=== PATIENT | male | born 1955 | race Caucasian/White ===

== ENCOUNTER 2016-11-01 07:59 | Emergency (ER) | payer OTHER ==
[2016-11-01 08:47] VITALS: BP 120/78
--- NOTE | 2016-11-01 08:52 | ED ---
Vangie Johnson Thomas, scribed for Trevor Villalba MD on 11/01/16 at 0804 . Back Pain - HPI Summary HPI Summary: The pt is a 61 y/o M presenting to the ED c/o low back pain s/p trip and fall two days ago. There is more pain on the R side. He rates the pain 6/10. He notes that his pain has improved somewhat since his fall, but he is not yet back to baseline. He has been prescribed Lidoderm patch, which has alleviated pain moderately. His low back pain worsens with movement, especially standing. He denies sensation deficit, weakness, bladder incontinence, and bowel incontinence. He states that when he has injured his back in the past, he has used Motrin and yoga poses to alleviate pain. - History of Current Complaint Stated Complaint: FALL BACK PAIN Hx Obtained From: Patient Onset/Duration: Sudden Onset - s/p fall two days ago, Still Present Onset/Duration: Still Present Timing: Constant, Lasting Days - 2 days Severity Currently: Moderate Pain Intensity: 6 Pain Scale Used: 0-10 Numeric Aggravating Symptom(s): Movement - especially sitting up Alleviating Symptom(s): OTC Meds - lidoderm Associated Signs And Symptoms: Positive: Other. Negative: Weakness - NEG: sensation deficiet, Bladder Incontinence, Bowel Incontinence - Allergies/Home Medications Allergies/Adverse Reactions: Allergies Allergy/AdvReac Type Severity Reaction Status Date / Time Citric Acid Allergy Intermediate Hives Verified 01/02/16 08:22 [From Citric Acid-Anhydrous] Pollen Extract Allergy Sneezing Verified 01/02/16 08:22 PMH/Surg Hx/FS Hx/Imm Hx Previously Healthy: No Endocrine/Hematology History: Denies: Hx Diabetes, Hx Systemic Lupus Erythematosus, Hx Thyroid Disease Cardiovascular History: Denies: Hx Congestive Heart Failure, Hx Hypertension, Hx Pacemaker/ICD Respiratory History: Reports: Hx Asthma Denies: Hx Chronic Obstructive Pulmonary Disease (COPD) GI History: Denies: Hx Ulcer History: Denies: Hx Dialysis, Hx Renal Disease Musculoskeletal History: Reports: Other Musculoskeletal History - severe low back pain radiating down both legs, no trauma Denies: Hx Rheumatoid Arthritis Sensory History: Denies: Hx Hearing Aid Neurological History: Denies: Hx Dementia, Hx Seizures Psychiatric History: Denies: Hx Depression, Hx Panic Disorder, Hx Substance Abuse - Cancer History Cancer Type, 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 Hx Chemotherapy: No - Surgical History Surgery Procedure, Year, and Place: 1999 LEG TUMOR REMOVAL (CANCEROUS) DID RADIATION AT THAT TIME, LT ELBOW X3, INTESTINAL REMOVAL NOT dueTO CANCER, BLADDER GROWTH NON CANCEROUS, COLON TUMOR NON CANCEROUS, HERNIA Infectious Disease History: Denies: Hx Hepatitis, Hx Human Immunodeficiency Virus (HIV), Traveled Outside the [place] in Last 30 Days - Family History Known Family History: Positive: Hypertension, Other - POS: HLD, colon CA - Social History Alcohol Use: Occasionally Hx Substance Use: No Substance Use Type: Reports: None Smoking Status (MU): Never Smoked Tobacco Review of Systems Constitutional: Negative Eyes: Negative ENT: Negative Cardiovascular: Negative Respiratory: Negative Gastrointestinal: Negative Positive: Other - NEG: incontinence Genitourinary: Negative Negative: incontinence Musculoskeletal: Other - POS: lower back pain, worsened with movement Skin: Negative Neurological: Negative, Other - NEG: sensation deficit, weakness to lower back Psychological: Normal All Other Systems Reviewed And Are Negative: Yes Physical Exam - Summary Physical Exam Summary: Gen: well-appearing, no pain distress Skin: warm, color, dry Head: normal Eyes: EOMI, THAO ENT: normal Neck: supple, nontender Resp: CTA, breath sounds present Cardio: RRR Abd: soft, nontender Bowel: present Musc: full strength to lower extremities, TTP lower lumbar, L and R SI joints. Increased pain with R plantar flexion and dorsiflexion Neuro: normal, full motor strength, no sensation deficits, A&O x3 Psych: affect/mood appropriate Triage Information Reviewed: Yes Vital Signs On Initial Exam: Initial Vitals Temp Pulse Resp BP Pulse Ox 97 F 65 18 144/94 98 11/01/16 08:00 11/01/16 08:00 11/01/16 08:00 11/01/16 08:00 11/01/16 08:00 Vital Signs Reviewed: Yes Diagnostics - Vital Signs Vital Signs Temp Pulse Resp BP Pulse Ox 11/01/16 08:45 98.2 F 71 16 120/78 11/01/16 08:09 98.1 F 70 16 124/80 99 11/01/16 08:00 97 F 65 18 144/94 98 - Laboratory Lab Statement: Any lab studies that have been ordered have been reviewed, and results considered in the medical decision making process. Back Pain Course/Dx - Course Course Of Treatment: NO CRITICAL CARE TIME. DISCHARGE HOME STABLE. - Diagnoses Provider Diagnoses: Low back pain Discharge - Discharge Plan Condition: Stable Disposition: HOME Prescriptions: Cyclobenzaprine TAB* [Flexeril 10 MG TAB*] 10 mg PO TID PRN #10 tab MDD 3 PRN Reason: Pain Ibuprofen TAB* [Motrin TAB* 800 MG] 800 mg PO Q6H #25 tab Lidocaine PATCH 5%* [Lidoderm 5% Patch*] 1 patch TRANSDERM DAILY PRN #10 patch PRN Reason: Pain Patient Education Materials: Acute Low Back Pain (ED), Lower Back Exercises (ED ) Referrals: Non Staff,Doctor [Primary Care Provider] - Additional Instructions: FOLLOW UP WITH YOUR DOCTOR. CONTINUE THE IBUPROFEN DIRECTED. RETURN TO THE EMERGENCY DEPARTMENT FOR ANY WORSENING OF YOUR CONDITION; WEAKNESS , NUMBNESS, DIFFICULTY CONTROLLING BOWEL OR BLADDER OR QUESTIONS OR CONCERNS. The documentation as recorded by the Vangie hernandez Thomas accurately reflects the service I personally performed and the decisions made by , Trevor Villalba MD.
== END 2016-11-01 08:45 | disposition home or self-care (01) ==
LOC: ED 07:59
DX: M54.5 Low back pain (principal)

== ENCOUNTER 2017-09-07 07:56 | Day surgery (SDC) | payer OTHER ==
[~2017-09-07 07:56] MED LIST: Acetaminophen TAB* 325 MG PO PRN; Buffered Lidocaine 0.9% SYRIN* 5 ML/SYR SYRINGE INTRADERM ONE
[2017-09-07] MEDS ORDERED: fentaNYL* 50 MCG/ML 2 ML VIAL (100 MCG VIAL) ONE (09:46)
[2017-09-07] MEDS ORDERED: Midazolam* 1 MG/ML 2 ML VIAL (2 MG) ONE ×2 (09:46→10:11)
[2017-09-07 10:54] VITALS: BP 123/64
[2017-09-07] MEDS ORDERED: Cyclopentolate 1% OPTH.SOL* 2 ML BTL ONE (12:23)
[2017-09-07] MEDS ORDERED: Proparacaine 0.5% OPHTH.SOL* 15 ML BTL ONE (12:23)
[2017-09-07] MEDS ORDERED: Neomycin/Polymy/Dex OPTH.SUSP* MAXITROL 0.1% 5 ML ONE (12:23)
[2017-09-07] MEDS ORDERED: Phenylephrine 2.5% OPTH.SOL* 2 ML BTL ONE (12:23)
[2017-09-07] MEDS ORDERED: acetaZOLAMIDE TAB* 250 MG ONE (12:23)
[2017-09-07] MEDS ORDERED: Povidone Iodine 5% OPTH* 30 ML BTL ONE (12:23)
[2017-09-07] MEDS ORDERED: Lidocaine 1% MPF* 2 ML VIAL ONE (12:23)
[2017-09-07] MEDS ORDERED: Ketorolac 0.5% OPHTH (NF) 0.5 % 5 ML BTL ONE (12:23)
[2017-09-07] MEDS ORDERED: Lidocaine 2% EPI 1:200000 MPF*10-20 ML VIAL ONE (12:23)
--- NOTE | 2017-09-08 06:50 | OP ---
DATE OF OPERATION: 09/07/17 - [facility] DATE OF : 53 SURGEON: Fredi Dee M.D. PREOPERATIVE DIAGNOSIS: Cataract, right eye. POSTOPERATIVE DIAGNOSIS: Cataract, right eye. OPERATIVE PROCEDURE: Extracapsular cataract extraction with intraocular lens implant right eye. DESCRIPTION OF PROCEDURE: The patient was brought to the operating room after being given 1/2% Alcaine with epinephrine drops in the preoperative area. The eye was prepped and draped in the usual sterile fashion. Sterile drape and eyelid speculum were placed. Again, topical 1/2% Alcaine with epinephrine was given. A paracentesis incision was made at the 9 o'clock position with the No.75 blade. Clear cornea incision 2.2 x 2.2-mm was created at the 12 o'clock position starting at the anterior limbus using the 2.2-mm keratome. The anterior chamber was irrigated with 0.4 mL of 1% non-preservative intracameral lidocaine and filled with DisCoVisc. A capsulorrhexis was completed using the cystotome and the Utrata forceps. Hydrodissection was performed with balanced salt solution. The lens nucleus was removed with the Phacoemulsification handpiece without incident. Cortex was removed with the irrigation-aspiration handpiece. The capsular bag was re-inflated using DisCoVisc and an [id number] 22 implant was inserted with the shooter. Pupil is only 3 mm, so a Malyugin ring was used to dilate the pupil prior to capsulorrhexis, removed after insertion of the lens. Indication for complex cataract surgery: Pupillary abnormalities requiring pupil dilation device. The irrigation-aspiration handpiece was used to remove all residual DisCoVisc. The eye was refilled with balanced salt solution and the wound checked and found to be watertight. Topical Maxitrol drops were given. [id number]/[facility] #: [id number] MTDD
== END 2017-09-07 10:11 | disposition home or self-care (01) ==
LOC: OREAST 07:56
PROVIDERS: ATTEND Specialist
DX: H25.813 Combined forms of age-related cataract, bilateral (principal); H10.45 Other chronic allergic conjunctivitis; J45.909 Unspecified asthma, uncomplicated; Z87.891 Personal history of nicotine dependence
CPT/HCPCS: A9270-GY; J2250; J3010; V2632

== ENCOUNTER 2017-09-14 07:26 | Day surgery (SDC) | payer OTHER ==
[2017-09-14] MEDS ORDERED: Midazolam* 1 MG/ML 2 ML VIAL (2 MG) ONE (09:14)
[2017-09-14] MEDS ORDERED: fentaNYL* 50 MCG/ML 2 ML VIAL (100 MCG VIAL) ONE (09:19)
[2017-09-14 10:04] VITALS: BP 137/87
[2017-09-14] MEDS ORDERED: Neomycin/Polymy/Dex OPTH.SUSP* MAXITROL 0.1% 5 ML ONE (13:21)
[2017-09-14] MEDS ORDERED: Phenylephrine 2.5% OPTH.SOL* 2 ML BTL ONE (13:21)
[2017-09-14] MEDS ORDERED: Ketorolac 0.5% OPHTH (NF) 0.5 % 5 ML BTL ONE (13:21)
[2017-09-14] MEDS ORDERED: Cyclopentolate 1% OPTH.SOL* 2 ML BTL ONE (13:21)
[2017-09-14] MEDS ORDERED: Proparacaine 0.5% OPHTH.SOL* 15 ML BTL ONE (13:21)
[2017-09-14] MEDS ORDERED: Lidocaine 1% MPF* 2 ML VIAL ONE (13:21)
[2017-09-14] MEDS ORDERED: acetaZOLAMIDE TAB* 250 MG ONE (13:21)
[2017-09-14] MEDS ORDERED: Povidone Iodine 5% OPTH* 30 ML BTL ONE (13:21)
[2017-09-14] MEDS ORDERED: Lidocaine 2% EPI 1:200000 MPF*10-20 ML VIAL ONE (13:21)
--- NOTE | 2017-09-15 05:13 | OP ---
DATE OF OPERATION: 09/14/17 [facility] DATE OF : 53 SURGEON: Fredi Dee M.D. PREOPERATIVE DIAGNOSIS: Cataract, left eye. POSTOPERATIVE DIAGNOSIS: Cataract, left eye. OPERATIVE PROCEDURE: Extracapsular cataract extraction with intraocular lens implant left eye. DESCRIPTION OF PROCEDURE: The patient was brought to the operating room after being given 1/2% Alcaine with epinephrine drops in the preoperative area. The eye was prepped and draped in the usual sterile fashion. Sterile drape and eyelid speculum were placed. Again, topical 1/2% Alcaine with epinephrine was given. A paracentesis incision was made at the 3 o'clock position with the No.75 blade. Clear cornea incision 2.2 x 2.2-mm was created at the 6 o'clock position starting at the anterior limbus using the 2.2-mm keratome. The anterior chamber was irrigated with 0.4 mL of 1% non-preservative intracameral lidocaine and filled with DisCoVisc. A capsulorrhexis was completed using the cystotome and the Utrata forceps. Hydrodissection was performed with balanced salt solution. The lens nucleus was removed with the Phacoemulsification handpiece without incident. Cortex was removed with the irrigation-aspiration handpiece. The capsular bag was re-inflated using DisCoVisc and an SN60WF 22.5 implant was inserted with the shooter and Malyugin ring was used to dilate the pupil prior to capsulorrhexis and removed after insertion of the lens. The pupil was only about 3 mm. Indication for complex cataract surgery, pupillary abnormalities requiring pupil dilation. The irrigation-aspiration handpiece was used to remove all residual DisCoVisc. The eye was refilled with balanced salt solution and the wound checked and found to be watertight. Topical Maxitrol drops were given. [id number]/[facility] #: [id number] [facility] CENTERLexy
== END 2017-09-14 09:58 | disposition home or self-care (01) ==
LOC: OREAST 07:26
PROVIDERS: ATTEND Specialist
DX: H25.812 Combined forms of age-related cataract, left eye (principal); H10.45 Other chronic allergic conjunctivitis; G47.33 Obstructive sleep apnea (adult) (pediatric); J45.909 Unspecified asthma, uncomplicated; F41.9 Anxiety disorder, unspecified; Z87.891 Personal history of nicotine dependence; Z85.831 Personal history of malignant neoplasm of soft tissue; G43.909 Migraine, unspecified, not intractable, without status migrainosus
CPT/HCPCS: A9270-GY; J2250; J3010; V2632

== ENCOUNTER 2017-10-05 17:44 | Emergency (ER) | payer OTHER ==
[2017-10-05] MEDS ORDERED: predniSONE TAB* 20 MG PO ONE (18:28)
--- NOTE | 2017-10-05 18:35 | ED ---
Skin Complaint - HPI Summary HPI Summary: Complains of poison chanel rash on bilateral legs, bilateral arms, back and chest 3 days. History of same. Denies perioral swelling, facial swelling, SOB, N/V, fever. - History of Current Complaint Chief Complaint: EDRashSkinAbscess Time Seen by Provider: 10/05/17 18:12 Stated Complaint: SKIN ISSUE Hx Obtained From: Patient Timing: Constant Onset Severity: Mild Current Severity: Moderate Pain Intensity: 4 Pain Scale Used: 0-10 Numeric Skin Location: Diffuse - Allergy/Home Medications Allergies/Adverse Reactions: Allergies Allergy/AdvReac Type Severity Reaction Status Date / Time MS Citric Acid Allergy Intermediate Hives Verified 09/07/17 08:24 [From Citric Acid-Anhydrous] citric acid Allergy Hives Verified 10/05/17 17:51 MS Pollen Extract Allergy Sneezing Verified 09/07/17 08:24 [Pollen Extract] pollen extracts Allergy Sneezing Verified 10/05/17 17:51 PMH/Surg Hx/FS Hx/Imm Hx Endocrine/Hematology History: Denies: Hx Diabetes, Hx Systemic Lupus Erythematosus, Hx Thyroid Disease Cardiovascular History: Denies: Hx Congestive Heart Failure, Hx Hypertension, Hx Pacemaker/ICD Respiratory History: Reports: Hx Asthma - uses inhaler, Hx Sleep Apnea Denies: Hx Chronic Obstructive Pulmonary Disease (COPD) GI History: Denies: Hx Ulcer History: Denies: Hx Dialysis, Hx Renal Disease Musculoskeletal History: Reports: Hx Arthritis - knees, Other Musculoskeletal History - severe low back pain radiating down both legs, no trauma Denies: Hx Rheumatoid Arthritis Sensory History: Reports: Hx Cataracts - both, Hx Contacts or Glasses - glasses Denies: Hx Hearing Aid Opthamlomology History: Reports: Hx Cataracts - both, Hx Contacts or Glasses - glasses Neurological History: Reports: Hx Migraine - once in a while more in spring Denies: Hx Dementia, Hx Seizures Psychiatric History: Reports: Hx Anxiety - work related Denies: Hx Depression, Hx Panic Disorder, Hx Substance Abuse - Cancer History Cancer Type, 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 Hx Chemotherapy: Yes - and radiation - Surgical History Surgery Procedure, Year, and Place: 1999 LEG TUMOR REMOVAL (CANCEROUS) DID RADIATION AT THAT TIME, LT ELBOW X3, INTESTINAL REMOVAL NOT dueTO CANCER, BLADDER GROWTH NON CANCEROUS, COLON TUMOR NON CANCEROUS, HERNIA Hx Anesthesia Reactions: No Infectious Disease History: No Infectious Disease History: Denies: Hx Hepatitis, Hx Human Immunodeficiency Virus (HIV), Traveled Outside the [place] in Last 30 Days - Family History Known Family History: Positive: Hypertension, Other - POS: HLD, colon CA - Social History Alcohol Use: Occasionally Hx Substance Use: No Substance Use Type: Reports: None Smoking Status (MU): Never Smoked Tobacco Review of Systems Constitutional: Negative Eyes: Negative ENT: Negative Cardiovascular: Negative Respiratory: Negative Gastrointestinal: Negative Genitourinary: Negative Musculoskeletal: Negative Positive: Rash Neurological: Negative Psychological: Normal All Other Systems Reviewed And Are Negative: Yes Physical Exam - Summary Physical Exam Summary: Rash to bilateral lower extremities, bilateral upper extremities, with milder symptoms on chest and back. No perioral or oropharyngeal swelling. No work of breathing. Triage Information Reviewed: Yes Vital Signs On Initial Exam: Initial Vitals Temp Pulse Resp BP Pulse Ox 98.5 F 84 17 133/85 98 10/05/17 17:45 10/05/17 17:45 10/05/17 17:45 10/05/17 17:45 10/05/17 17:45 Vital Signs Reviewed: Yes Appearance: Positive: Well-Appearing Skin: Positive: Warm Head/Face: Positive: Normal Head/Face Inspection Eyes: Positive: Normal ENT: Positive: Normal ENT inspection Neck: Positive: Supple Respiratory/Lung Sounds: Positive: Clear to Auscultation Cardiovascular: Positive: Normal Abdomen Description: Positive: Nontender Musculoskeletal: Positive: Normal Neurological: Positive: Normal Psychiatric: Positive: Normal AVPU Assessment: Alert - Nia Coma Scale Best Eye Response: 4 - Spontaneous Best Motor Response: 6 - Obeys Commands Best Verbal Response: 5 - Oriented Coma Scale Total: 15 Diagnostics - Vital Signs Vital Signs Temp Pulse Resp BP Pulse Ox 10/05/17 17:45 98.5 F 84 17 133/85 98 - Laboratory Lab Statement: Any lab studies that have been ordered have been reviewed, and results considered in the medical decision making process. Course/Dx - Course Course Of Treatment: Complains of poison chanel rash on bilateral legs, bilateral arms, back and chest 3 days. History of same. Denies perioral swelling, facial swelling, SOB, N/V, fever.Rash to bilateral lower extremities, bilateral upper extremities, with milder symptoms on chest and back. No perioral or oropharyngeal swelling. No work of breathing. Patient started on prednisone 60 mg here in ED. Rx for prednisone taper 24 days - Diagnoses Provider Diagnoses: Poison chanel Discharge - Sign-Out/Discharge Documenting (check all that apply): Discharge/Admit/Transfer - Discharge Plan Condition: Stable Disposition: HOME Prescriptions: predniSONE TAB* [Deltasone 10 MG TAB*] 10 mg PO DAILY 24 Days #84 tab Patient Education Materials: Poison Chanel (ED), Cold Compress or Soak (ED) Referrals: Non Staff,Doctor [Medical Doctor] - [facility] [Outside] Additional Instructions: Take prednisone as directed. You may use [id number] hydrocortisone topical cream for itching but do not place on face or genitals. Follow-up with primary care. Return to the ED for any new or worsening symptoms - Billing Disposition and Condition Condition: STABLE Disposition: Home
[2017-10-05 18:46] VITALS: BP 000/00
== END 2017-10-05 18:45 | disposition home or self-care (01) ==
LOC: ED 17:44
DX: L23.7 Allergic contact dermatitis due to plants, except food (principal); J45.909 Unspecified asthma, uncomplicated; G47.30 Sleep apnea, unspecified; G43.909 Migraine, unspecified, not intractable, without status migrainosus; F41.9 Anxiety disorder, unspecified; Z85.831 Personal history of malignant neoplasm of soft tissue; Z82.49 Family history of ischemic heart disease and other diseases of the circulatory system; Z80.0 Family history of malignant neoplasm of digestive organs
CPT/HCPCS: 99281; J7512

== ENCOUNTER 2018-02-27 20:10 | Emergency (ER) | payer OTHER ==
[2018-02-27 20:22] VITALS: BP 134/93
[2018-02-27] MEDS ORDERED: DOXYcycline CAP(*) 100 MG PO ONE (21:06)
--- NOTE | 2018-02-27 21:07 | ED ---
Bite Injury/Animal - HPI Summary HPI Summary: 66-year-old male presents with tick on his back. Not sure how long the tick was there. No medical conditions. No allergies medication. No fevers. No chills. No other symptoms. - History of Current Complaint Chief Complaint: EDGeneral Stated Complaint: TICK LT SIDE FLANK AREA Time Seen by Provider: 02/27/18 20:57 Pain Intensity: 4 - Allergies/Home Medications Allergies/Adverse Reactions: Allergies Allergy/AdvReac Type Severity Reaction Status Date / Time citric acid Allergy Hives Verified 02/27/18 20:23 pollen extracts Allergy Sneezing Verified 02/27/18 20:23 PMH/Surg Hx/FS Hx/Imm Hx Endocrine/Hematology History: Denies: Hx Diabetes, Hx Systemic Lupus Erythematosus, Hx Thyroid Disease Cardiovascular History: Denies: Hx Congestive Heart Failure, Hx Hypertension, Hx Pacemaker/ICD Respiratory History: Reports: Hx Asthma - uses inhaler, Hx Sleep Apnea Denies: Hx Chronic Obstructive Pulmonary Disease (COPD) GI History: Denies: Hx Ulcer History: Denies: Hx Dialysis, Hx Renal Disease Musculoskeletal History: Reports: Hx Arthritis - knees, Other Musculoskeletal History - severe low back pain radiating down both legs, no trauma Denies: Hx Rheumatoid Arthritis Sensory History: Reports: Hx Cataracts - both, Hx Contacts or Glasses - glasses Denies: Hx Hearing Aid Opthamlomology History: Reports: Hx Cataracts - both, Hx Contacts or Glasses - glasses Neurological History: Reports: Hx Migraine - once in a while more in spring Denies: Hx Dementia, Hx Seizures Psychiatric History: Reports: Hx Anxiety - work related Denies: Hx Depression, Hx Panic Disorder, Hx Substance Abuse - Cancer History Cancer Type, 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 Hx Chemotherapy: Yes - and radiation - Surgical History Surgery Procedure, Year, and Place: 1999 LEG TUMOR REMOVAL (CANCEROUS) DID RADIATION AT THAT TIME, LT ELBOW X3, INTESTINAL REMOVAL NOT dueTO CANCER, BLADDER GROWTH NON CANCEROUS, COLON TUMOR NON CANCEROUS, HERNIA Hx Anesthesia Reactions: No Infectious Disease History: No Infectious Disease History: Denies: Hx Hepatitis, Hx Human Immunodeficiency Virus (HIV), Traveled Outside the [place] in Last 30 Days - Family History Known Family History: Positive: Hypertension, Other - POS: HLD, colon CA - Social History Alcohol Use: None Hx Substance Use: No Substance Use Type: Reports: None Smoking Status (MU): Never Smoked Tobacco Review of Systems Negative: Fever Negative: Chest Pain Negative: Shortness Of Breath Positive: Other - tick bite All Other Systems Reviewed And Are Negative: Yes Physical Exam Triage Information Reviewed: Yes Vital Signs On Initial Exam: Initial Vitals Temp Pulse Resp BP Pulse Ox 97.5 F 99 14 134/93 96 02/27/18 20:21 02/27/18 20:21 02/27/18 20:21 02/27/18 20:21 02/27/18 20:21 Vital Signs Reviewed: Yes Appearance: Positive: Well-Appearing Skin: Positive: Warm, Dry, Other - tick with minimial erythema on side of left lower back Head/Face: Positive: Normal Head/Face Inspection Eyes: Positive: Normal, Conjunctiva Clear ENT: Positive: Pharynx normal Respiratory/Lung Sounds: Positive: Clear to Auscultation, Breath Sounds Present Cardiovascular: Positive: Normal, RRR Musculoskeletal: Positive: Normal Neurological: Positive: Normal Psychiatric: Positive: Normal Diagnostics - Vital Signs Vital Signs Temp Pulse Resp BP Pulse Ox 02/27/18 20:21 97.5 F 99 14 134/93 96 - Laboratory Lab Statement: Any lab studies that have been ordered have been reviewed, and results considered in the medical decision making process. Bite Injury Course/Dx - Course Course Of Treatment: 66-year-old male presents with tick on his back. Not sure how long the tick was there. No medical conditions. No allergies medication. No fevers. No chills. No other symptoms. On exam tick present in left side of back. removed tick. We give prophylaxis a doxcyc. Patient understands agrees with plan. - Diagnoses Differential Diagnosis/HQI/PQRI: Positive: Other - tick, lyme Provider Diagnosis: Tick bite of back Discharge - Sign-Out/Discharge Documenting (check all that apply): Patient Departure - Discharge Plan Condition: Good Disposition: HOME Patient Education Materials: Tick Bite (ED) Referrals: Alma Cm MD [Primary Care Provider] - Additional Instructions: You have been prophylactically treated for Lyme disease Return to ED if develop any rash or signs of infection - Billing Disposition and Condition Condition: GOOD Disposition: Home
== END 2018-02-27 21:22 | disposition home or self-care (01) ==
LOC: ED 20:10
DX: S30.860A Insect bite (nonvenomous) of lower back and pelvis, initial encounter (principal); W57.XXXA Bitten or stung by nonvenomous insect and other nonvenomous arthropods, initial encounter; Y92.9 Unspecified place or not applicable
CPT/HCPCS: 99281; A9270-GY

== ENCOUNTER 2019-03-01 09:48 | Emergency (ER) | payer OTHER ==
--- OUTSIDE RECORDS SUMMARY | 2019-03-01 10:09 | XMS REPORT | Continuity of Care Document ---
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 Problems Active Problems Provider Date Acquired hallux rigidus Skyler Saavedra MD Onset: 07/07/2018 Social History Type Date Description Comments Sex Unknown ETOH Use Currently consumes alcohol Tobacco Use Start: Unknown Patient has never smoked Smoking Status Reviewed: 01/16/19 Patient has never smoked Exercise Type/Frequency Exercises sporadically Allergies, Adverse Reactions, Alerts Active Allergies Reaction Severity Comments Date Citric Acid 11/24/2018 Inactive Allergies NKDA 11/25/2016 Medications Active Medications SIG Qnty Indications Ordering Date Provider Magnesium Citrate Drink The Entire 296units Boston Bo 01/10/2019 Bottle After MD Barron 1.745GM/30ML Dinner, Two Days Solution Before Your Procedure Suprep Bowel Prep take according to 354ml Boston Bo 12/25/2018 Kit the instructions MD Barron you received, the 17.5-3.13-1.6GM/177 afternoon before ML Solution and morning of your procedure. [facility] Magnesium drink the entire 296ml Boston Bo 12/25/2018 Citrate bottle after MD Barron dinner, two days 1.745GM/30ML before your Solution procedure Naproxen 1 by mouth twice a 60tabs M25.561 Leeroy F 12/25/2018 500mg day as needed pain MD Fidelina Tablets Advair Diskus 1 puff inhaled 60units Anirudh Chappell MD 11/24/2018 twice a day 250-50mcg/Dose Aerosol Proventil HFA inhale two puffs 6.700gm Jo-Ann Gonzalez, 11/24/2018 every 4 hours as DO 108(90Base) mcg/Act needed for wheezing Aerosol Carbon Fiber Right foot 1units M17.0 Leeroy Loza 08/21/2018 Baseplate To Yemi Kitchen MD 1St MP Joint Motrin Ib as needed Unknown 600mg Tablets Niaspan 1 by mouth every Unknown 500mg day Tablets ER Tamsulosin HCL 2 by mouth every Unknown day 0.4mg Capsules Melatonin ER take one Unknown 3mg tablet/capsule by Tablets ER mouth at bedtime. for insomnia Montelukast Sodium 1 by mouth every Unknown day 10mg Tablets Albuterol Sulfate Unknown HFA 108(90Base) mcg/Act Aerosol Medications Administered in Office Medication SIG Qnty Indications Ordering Provider Date Depomedrol 40MG Leeroy Kitchen MD 12/25/2018 Injection Depomedrol 40MG Leeroy Kitchen MD 12/25/2018 Injection Depomedrol 40MG Leeroy Kitchen MD 12/25/2018 Injection Depomedrol 40MG Leeroy Kitchen MD 08/21/2018 Injection Depomedrol 40MG Leeroy Kitchen MD 08/21/2018 Injection Triamcinolone (Kenalog) Skyler Saavedar MD 07/07/2018 Injection Depomedrol 40MG Leeroy Kitchen MD 04/18/2018 Injection Depomedrol 40MG Leeroy Kitchen MD 04/18/2018 Injection Depomedrol 40MG Leeroy Kitchen MD 12/29/2017 Injection Depomedrol 40MG Leeroy Kitchen MD 12/12/2017 Injection Depomedrol 40MG Leeroy Kitchen MD 12/12/2017 Injection Depomedrol 40MG Leeroy Kitchen MD 08/09/2017 Injection Depomedrol 40MG Leeroy Kitchen MD 04/05/2017 Injection Kalebrol 40MG Leeroy Kitchen MD 04/05/2017 Injection Depomedrol 40MG Leeroy Kitchen MD 11/25/2016 Injection Immunizations Description No Information Available Vital Signs Date Vital Result Comment 01/16/2019 9:22am Height 64 inches 5'4" Weight 189.00 lb Heart Rate 65 /min BP Systolic Sitting 122 mmHg BP Diastolic Sitting 84 mmHg O2 % BldC Oximetry 96 % BMI (Body Mass Index) 32.4 kg/m2 Neck Circumference in inches 17.75 12/25/2018 4:21pm Height 64 inches 5'4" Weight 184.00 lb stated Heart Rate 82 /min BP Systolic 126 mmHg BP Diastolic 74 mmHg Respiratory Rate 12 /min Pain Level 6 BMI (Body Mass Index) 31.6 kg/m2 Results Test Date Facility Test Result H/L Range Note Laboratory test 01/03/2019 [facility] PSA Diagnostic 5.391 ng/ mL High 0-4.0 1 [address] [place] [address] [phone] Lipid Profile 12/05/2018 [facility] Triglycerides 267 mg/dL 2 (Trig/Chol/HDL) [place] [address] [phone] Cholesterol 172 mg/dL 3 HDL Cholesterol 31.0 mg/dL 4 LDL Cholesterol 88 mg/dL 5 Laboratory test 12/05/2018 [facility] Hemoglobin A1c 5.5 % Normal 4.0-5.[address] [facility] (Glyco HGB) [place] [address] [phone] Hepatitis C 12/05/2018 [facility] HCV Index 0.01 s/c Antibody [address] [place] [address] [phone] Hepatitis C Antibody Negative Negative 1 Serum levels of PSA measured using the [employer] DXI Hybritech immunoassay should not be interpreted as absolute evidence of the presence or absence of disease. The PSA value should be used in conjunction with other pertinent clinical diagnostic procedures. The values obtained with different assay methods or kits cannot be used interchangeably. 2 Desirable: <150 Borderline High: 150-199 High: 200-499 Very High: >500 3 Desirable: <200 Borderline High: 200-239 High: >239 4 Low: <40 Desirable: 40-60 High: >60 5 Desirable: <100 Near Optimal: 100-129 Borderline High: 130-159 High: 160-189 Very High: >189 6 Therapeutic target for the treatment of diabetes mellitus patients is <7% HBA1C, and in selective patients <6.0%. Please refer to [place] [employer] diabetic care guidelines for further information. Procedures Date Code Description Status 12/25/2018 Inject/Drain Joint/Bursa Major W/O US Completed 12/25/2018 Inject/Drain Joint/Bursa Small W/O US Completed 12/19/2018 39918 Plethysmography Determination Lung Volumes & Per Airway Completed Resist 12/19/2018 81813 Pulmonary Function><Bronchodil Completed 08/21/2018 Inject/Drain Joint/Bursa Major W/O US Completed Medical Devices Description No Information Available Encounters Type Date Location Provider Dx Diagnosis Office Visit 12/25/2018 Orthopedic Leeroy F M17.0 Bilateral primary 3:00p Services Of Kathryn Kitchen MD osteoarthritis of knee M25.561 Pain in right knee M25.562 Pain in left knee M20.21 Hallux rigidus, right foot M54.5 Low back pain Office Visit 11/24/2018 3:20p [employer] Internal Jo-Ann G47.33 Obstructive sleep Medicine - DO Lisa apnea (adult) [address] (pediatric) Z13.220 Encounter for screening for lipoid disorders J45.909 Unspecified asthma, uncomplicated F07.81 Postconcussional syndrome R51 Headache Assessments Date Code Description Provider 01/16/2019 [place]45.909 Unspecified asthma, uncomplicated Brianna Kaufman MD 01/16/2019 G47.33 Obstructive sleep apnea (adult) (pediatric) Brianna Kaufman MD 12/25/2018 M17.0 Bilateral primary osteoarthritis of knee Leeroy Kitchen MD 12/25/2018 M25.561 Pain in right knee Leeroy Kitchen MD 12/25/2018 M25.562 Pain in left knee Leeroy Kitchen MD 12/25/2018 M20.21 Hallux rigidus, right foot Leeroy Kitchen MD 12/25/2018 M54.5 Low back pain Leeroy Kitchen MD 12/19/2018 J45.909 Unspecified asthma, uncomplicated Brianna Kaufman MD 11/24/2018 G47.33 Obstructive sleep apnea (adult) (pediatric) Jo-Ann Gonzalez DO 11/24/2018 Z13.220 Encounter for screening for lipoid Jo-Ann Gonzalez DO disorders 11/24/2018 J45.909 Unspecified asthma, uncomplicated Jo-Ann Gonzalez, DO 11/24/2018 F07.81 Postconcussional syndrome Jo-Ann Gonzalez, DO 11/24/2018 R51 Headache Jo-Ann Gonzalez, DO 08/21/2018 M17.0 Bilateral primary osteoarthritis of knee Leeroy Kitchen MD 08/21/2018 M25.561 Pain in right knee Leeroy Kitchen MD 08/21/2018 M25.562 Pain in left knee Leeroy Kitchen MD Plan of Treatment Future Appointment(s):03/13/2019 10:00 am - Mirna Tomlin NP at [facility]05/01/2019 9:45 am - Leeroy Kitchen MD at [facility]01/29/2019 8:45 am - Boston Mart MD at [facility] Ctvykybxjgohahvg53/17/2019 - Brianna Kaufman MDJ45.909 Unspecified asthma , uncomplicatedFollow up:6 weeks SMG47.33 Obstructive sleep apnea (adult) ( pediatric)New Orders:Sleep Study Cpap Retitration, Ordered: 01/16/19 Functional Status Description No Information Available Mental Status Description No Information Available Referrals Refer to Dr Reason for Referral Status Appt Date Boston Mart MD Sent 01/29/2019 [address] [place] [address] [phone] Brianna Kaufman MD asthma with remote PFTs, ARNEL needing CPAP Sent 2018 titration (Dr. Gonzalez) [address] [place] [address] [phone]
--- OUTSIDE RECORDS SUMMARY | 2019-03-01 10:09 | XMS REPORT | Continuity of Care Document ---
:1955 External Reference #:[id number] Author Name Vazquez Briggs M.D. 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 [phone] Problems Active Problems Provider Date Acquired hallux rigidus Skyler Saavedra MD Onset: 07/07/2018 Social History Type Date Description Comments Sex Unknown ETOH Use Currently consumes alcohol Tobacco Use Start: Unknown Patient has never smoked Smoking Status Reviewed: 01/23/19 Patient has never smoked Exercise Type/Frequency Exercises [...] Kitchen MD 08/21/2018 Injection Triamcinolone (Kenalog) Skyler Saavedra MD 07/07/2018 Injection Depomedrol 40MG Leeroy Kitchen MD 04/18/2018 Injection Depomedrol 40MG Leeroy Kitchen MD 04/18/2018 Injection Depomedrol 40MG Leeroy Kitchen MD 12/29/2017 Injection Depomedrol 40MG Leeroy Kitchen MD 12/12/2017 Injection Depomedrol 40MG Leeroy Kitchen MD 12/12/2017 Injection Depomedrol 40MG Leeroy Kitchen MD 08/09/2017 Injection Depomedrol 40MG Leeroy Kitchen MD 04/05/2017 Injection Depjayyrol 40MG Leeroy Kitchen MD 04/05/2017 Injection Depomedrol 40MG Leeroy Kitchen MD 11/25/2016 Injection Immunizations Description No Information Available Vital Signs Date Vital Result Comment 01/23/2019 9:24am Height 64 inches 5'4" Weight 185.00 lb Heart Rate 73 /min BP Systolic Sitting 128 mmHg BP Diastolic Sitting 82 mmHg Respiratory Rate 16 /min Pain Level 8 O2 % BldC Oximetry 98 % BMI (Body Mass Index) 31.8 kg/m2 01/16/2019 9:22am Height 64 inches 5'4" Weight 189.00 lb Heart Rate 65 /min BP Systolic Sitting 122 mmHg BP Diastolic Sitting 84 mmHg O2 % BldC Oximetry 96 % BMI (Body Mass Index) 32.4 kg/m2 Neck Circumference in inches 17.75 Results Test Date Facility Test Result H/L Range Note Laboratory test 01/03/2019 [facility] PSA Diagnostic 5.391 ng/ mL High 0-4.0 1 [address] [place] [address] [phone] Lipid Profile 12/05/2018 [facility] Triglycerides 267 mg/dL 2 (Trig/Chol/HDL) [place] [address] [phone] Cholesterol 172 mg/dL 3 HDL Cholesterol 31.0 mg/dL 4 LDL Cholesterol 88 mg/dL 5 Laboratory test 12/05/2018 [facility] Hemoglobin A1c 5.5 % Normal 4.0-5.6 6 finding [address] [facility] (Glyco HGB) [place] [address] [phone] Hepatitis C 12/05/2018 [facility] HCV Index 0.01 s/c Antibody [address] [place] [address] [phone] Hepatitis C Antibody Negative Negative 1 Serum levels of PSA measured using the [employer] DXI Hybritech immunoassay should not be interpreted [...] in selective patients <6.0%. Please refer to [place] [employer] diabetic care guidelines for further information. Procedures Date Code Description Status 12/25/2018 Inject/Drain Joint/Bursa Major W/O US Completed 12/25/2018 Inject/Drain Joint/Bursa Small W/O US Completed 12/19/2018 58743 Plethysmography Determination Lung Volumes & Per Airway Completed Resist 12/19/2018 84686 Pulmonary Function><Bronchodil Completed 08/21/2018 Inject/Drain Joint/Bursa Major W/O US Completed Medical Devices Description No Information Available Encounters Type Date Location Provider Dx Diagnosis Office Visit 01/16/2019 Pulmonology And Brianna Kaufman, J45.909 Unspecified asthma, 9:30a Sleep Services Of MD margaret Brown G47.33 Obstructive sleep apnea (adult) (pediatric) Office Visit 12/25/2018 Orthopedic Leeroy Loza M17.0 Bilateral primary 3:00p Services Of MD Fidelina osteoarthritis of [facility] knee M25.561 Pain in right knee M25.562 Pain in left knee M20.21 Hallux rigidus, right foot M54.5 Low back pain Office Visit 11/24/2018 3:20p [facility] Internal Jo-Ann G47.33 Obstructive sleep Medicine - [place], DO apnea (adult) [address] (pediatric) Z13.220 Encounter for screening for lipoid disorders J45.909 Unspecified asthma, uncomplicated F07.81 Postconcussional syndrome R51 Headache Assessments Date Code Description Provider 01/23/2019 M20.21 Hallux rigidus, right foot Vazquez Briggs M.D. 01/16/2019 J45.909 Unspecified asthma, uncomplicated Brianna Kaufman MD 01/16/2019 [...] Obstructive sleep apnea (adult) (pediatric) Jo-Ann Gonzalez , DO 11/24/2018 Z13.220 Encounter for screening for lipoid Jo-Ann Gonzalez, DO disorders 11/24/2018 J45.909 Unspecified asthma, uncomplicated Jo-Ann Gonzalez, DO 11/24/2018 F07.81 Postconcussional syndrome Jo-Ann Gonzalez, DO 11/24/2018 R51 Headache Jo-Ann Gonzalez, DO 08/21/2018 M17.0 Bilateral primary osteoarthritis of knee Leeroy Kitchen MD 08/21/2018 M25.561 Pain in right knee Leeroy Kitchen MD 08/21/2018 M25.562 Pain in left knee Leeroy Kitchen MD Plan of Treatment Future Appointment(s):04/19/2019 8:00 am - Vazquez Briggs M.D. at [facility]04/09/2019 7:30 am - Vazquez Briggs M.D. at [facility]03/13/2019 10:00 am - Mirna Tomlin NP at [facility]05/01/2019 9:45 am - Leeroy Kitchen MD at [facility]01/29/2019 8:45 am - Boston Mart MD at [facility] Deriypbopolxlmrq60/24/2019 - Vazquez Briggs M.D.M20.21 Hallux rigidus, right foot Functional Status Description No Information Available Mental Status Description No Information Available Referrals Refer to Dr Reason for Referral Status Appt Date Boston Mart MD Sent 01/29/2019 [address] [place] [address] [phone] Brianna Kaufman MD asthma with remote PFTs, ARNEL needing CPAP Sent 2018 titration (Dr. Gonzalez) [address] [place] [address] [phone]
--- NOTE | 2019-03-01 10:37 | ED ---
Skin Complaint - HPI Summary HPI Summary: This pt is a 64 [facility] [place] [facility] [place]cy 2 [place] [facility]. Pt reports he initially noticed pruritic red spot over left forehead. He notes it then spread to his right wrist and now has a couple of spots that have spread to his left wrist. Denies any other symptoms. Denies fever, chills, nausea, vomiting. Pt states the last time he had poison marcy was 1 year ago and he was given steroids for 10 days. Denies any PMHx. NKDA. - History of Current Complaint Chief Complaint: EDRashSkinAbscess Time Seen by Provider: 03/01/19 10:26 Stated Complaint: POISON MARCY PER PT Hx Obtained From: Patient Onset/Duration: Started Days Ago, Still Present Skin Exposure Onset/Duration: Days Ago Timing: Lasting Days Current Severity: Mild Pain Intensity: 2 Pain Scale Used: 0-10 Numeric Skin Location: Other: - forehead and bilateral wrists Character: Pruritus, Redness Aggravating Symptom(s): Nothing Alleviating Symptom(s): Nothing Associated Signs & Symptoms: Negative Related History: Possible Reaction to: Environmental Exposure - poison marcy - Allergy/Home Medications Allergies/Adverse Reactions: Allergies Allergy/AdvReac Type Severity Reaction Status Date / Time citric acid Allergy Hives Verified 01/19/19 12:27 pollen extracts Allergy Sneezing Verified 01/19/19 12:27 Home Medications: Home Medications Olopatadine 0.1% OPHTH (NF) [Patanol 0.1% OPHTH (NF)] 1 drop BOTH EYES DAILY PRN 03/01/19 [History Confirmed 03/01/19] PMH/Surg Hx/FS Hx/Imm Hx Endocrine/Hematology History: Denies: Hx Diabetes, Hx Systemic Lupus Erythematosus, Hx Thyroid Disease Cardiovascular History: Denies: Hx Congestive Heart Failure, Hx Hypertension, Hx Pacemaker/ICD Respiratory History: Reports: Hx Asthma - uses inhaler, Hx Sleep Apnea Denies: Hx Chronic Obstructive Pulmonary Disease (COPD) GI History: Denies: Hx Ulcer History: Denies: Hx Dialysis, Hx Renal Disease Musculoskeletal History: Reports: Hx Arthritis - knees, Other Musculoskeletal History - severe low back pain radiating down both legs, no trauma Denies: Hx Rheumatoid Arthritis Sensory History: Reports: Hx Cataracts - both, Hx Contacts or Glasses - glasses Denies: Hx Hearing Aid Opthamlomology History: Reports: Hx Cataracts - both, Hx Contacts or Glasses - glasses Neurological History: Reports: Hx Migraine - once in a while more in spring Denies: Hx Dementia, Hx Seizures Psychiatric History: Reports: Hx Anxiety - work related Denies: Hx Depression, Hx Panic Disorder, Hx Substance Abuse - Cancer History Cancer Type, 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 Hx Chemotherapy: Yes - and radiation - Surgical History Surgical History: Yes Surgery Procedure, Year, and Place: 1999 LEG TUMOR REMOVAL (CANCEROUS) DID RADIATION AT THAT TIME, LT ELBOW X3, INTESTINAL REMOVAL NOT dueTO CANCER, BLADDER GROWTH NON CANCEROUS, COLON TUMOR NON CANCEROUS, HERNIA Hx Anesthesia Reactions: No Infectious Disease History: No Infectious Disease History: Denies: Hx Hepatitis, Hx Human Immunodeficiency Virus (HIV), Traveled Outside the [place] in Last 30 Days - Family History Known Family History: Positive: Hypertension, Other - POS: HLD, colon CA - Social History Alcohol Use: None Hx Substance Use: No Substance Use Type: Reports: None Smoking Status (MU): Never Smoked Tobacco Review of Systems Negative: Fever, Chills Cardiovascular: Negative Respiratory: Negative Negative: Vomiting, Nausea Skin: Other - POSITIVE: pruritic rash on forehead and bilateral wrists All Other Systems Reviewed And Are Negative: Yes Physical Exam - Summary Physical Exam Summary: General: Well appearing, no distress Cardiovascular: Skin is well perfused Pulmonary: No respiratory distress, no tachypnea Abdomen: Non-distended Skin: mild erythematous scaly rash to the left wrist, right second digit, and one spot to the right temporal area. MSK: no edema Psych: Normal affect Neuro: A&Ox3 Triage Information Reviewed: Yes Vital Signs On Initial Exam: Initial Vitals Temp Pulse Resp BP Pulse Ox 97.6 F 69 18 129/88 96 03/01/19 10:01 03/01/19 10:01 03/01/19 10:01 03/01/19 10:01 03/01/19 10:01 Vital Signs Reviewed: Yes Procedures - Sedation Patient Received Moderate/Deep Sedation with Procedure: No Diagnostics - Vital Signs Vital Signs Temp Pulse Resp BP Pulse Ox 03/01/19 10:01 97.6 F 69 18 129/88 96 - Laboratory Lab Statement: Any lab studies that have been ordered have been reviewed, and results considered in the medical decision making process. Course/Dx - Course Course Of Treatment: 64 y/o male p/w poison marcy. - minimal rash to hands, one spot on face. - will give topical steroids (requesting PO). D/w concern with systemic steroids. - Diagnoses Provider Diagnoses: Poison marcy Discharge ED - Sign-Out/Discharge Documenting (check all that apply): Patient Departure - Discharge home - Discharge Plan Condition: Stable Disposition: HOME Prescriptions: Triamcinolone 0.1% Oint (NF) [Triamcinolone Acetonide] 0 % TOPICAL BID 14 Days # 1 oin Patient Education Materials: Poison Marcy (ED) Referrals: Jo-Ann Gonzalez DO [Primary Care Provider] - Additional Instructions: Please use triamcinolone cream twice a day for 14 days. Return for worsening symptoms, fevers, spread of rash. - Billing Disposition and Condition Condition: STABLE Disposition: Home - Attestation Statements Document Initiated by Briannae: Yes Documenting Scribe: Ashleigh Garcia Provider For Whom Jimmy is Documenting (Include Credential): Tej Cottrell MD Scribe Attestation: Ashleigh Johnson, scribed for Tej Cottrell MD on 03/01/19 at 1115. Scribe Documentation Reviewed: Yes Provider Attestation: The documentation as recorded by the Ashleigh hernandez accurately reflects the service I personally performed and the decisions made by Tej arriaza MD Status of Scribe Document: Viewed
[2019-03-01 10:55] VITALS: BP 124/82
== END 2019-03-01 10:53 | disposition home or self-care (01) ==
LOC: ED 09:48
DX: L23.7 Allergic contact dermatitis due to plants, except food (principal); F41.9 Anxiety disorder, unspecified; Z85.89 Personal history of malignant neoplasm of other organs and systems
CPT/HCPCS: 99282

== ENCOUNTER 2022-12-20 05:52 | Observation (INO) ==
[~2022-12-20 05:52] MED LIST changes: -Acetaminophen TAB* 325 MG PO PRN; -Buffered Lidocaine 0.9% SYRIN* 5 ML/SYR SYRINGE INTRADERM ONE; +Naloxone 0.4 mg VIAL 0.4 mg/ml 1 ml VIAL IV PRN; +Ondansetron 4 mg VIAL 2 MG/ML 2 ml VIAL IV PRN
[2022-12-20] MEDS ORDERED: Buffered Lidocaine 1% SYRIN 1 ml INTRADERM ONE (06:00)
[2022-12-20] MEDS ORDERED: Lactated Ringers 1000 ml BAG 1,000 ML IV SCH (06:00)
[2022-12-20] MEDS ORDERED: ceFAZolin 2 GM PREMIX 2 GM/50 ML BAG ONE (06:22)
[2022-12-20] MEDS ORDERED: Bupivacaine 0.5% SDV PF 30ML VIAL ONE (06:40)
[2022-12-20] MEDS ORDERED: Dexamethasone IV 4 MG/ML VIAL 1 ml VIAL ONE (06:41)
[2022-12-20 06:45] LABS: Rapid COVID-19 Molecular Undetected (Undetected)
[2022-12-20] MEDS ORDERED: Vancomycin 1,000 MG VIAL ONE (06:55)
[2022-12-20] MEDS ORDERED: Midazolam 2 mg/2 ml VIAL 1 mg/ml 2 ml VIAL (2 mg) ONE ×2 (06:58→08:35)
[2022-12-20] MEDS ORDERED: Lidocaine 2% PF 5 ML VIAL ONE (06:59)
[2022-12-20] MEDS ORDERED: Propofol 10 MG/ML 20 ML BTL ONE ×2 (07:01→10:41)
[2022-12-20] MEDS ORDERED: Bupivacaine 0.25% w/EPI 10 ML SDV ONE (07:01)
[2022-12-20] MEDS ORDERED: Phenylephrine 40 mcg/mL 10mL (400mcg) SYRINGE ONE (07:56)
[2022-12-20] MEDS ORDERED: Ondansetron 4 mg VIAL 2 MG/ML 2 ml VIAL ONE (08:03)
[2022-12-20] MEDS ORDERED: Acetaminophen IV 1 GM/100ML 1,000 MG/100 ML BAG IV ONE (08:08)
[2022-12-20] MEDS ORDERED: fentaNYL 100 mcg/2 ml 50 MCG/ML VIAL ONE ×3 (08:35→12:57)
[2022-12-20] MEDS ORDERED: Ondansetron ODT 4 mg TAB 4 MG TAB PO PRN (11:00)
[2022-12-20] MEDS ORDERED: Magnesium Hydroxide LIQ 30 ML UDC PO PRN (11:00)
[2022-12-20] MEDS ORDERED: Lactulose 30 ml UDC PO PRN (11:00)
[2022-12-20] MEDS ORDERED: Ondansetron 4 mg VIAL 2 MG/ML 2 ml VIAL IV PRN (11:00)
[2022-12-20] MEDS ORDERED: Morphine 2 MG/ML SYRINGE IV PRN (11:00)
[2022-12-20] MEDS: fentaNYL 100 mcg/2 ml 50 MCG/ML VIAL IV PRN ×6 (11:44→13:11)
[2022-12-20] MEDS ORDERED: Albuterol 2.5mg/3 ml (0.083%) NEB.SOLN INH PRN (13:12)
[2022-12-20] MEDS ORDERED: Dextran 70/Hypromellose Tears Eye Drops 15 ml BTL (for Artificials Tears) BOTH EYES PRN (13:14)
[2022-12-20] MEDS: Lactated Ringers 1000 ml BAG 1,000 ML IV SCH (14:42)
[2022-12-20] MEDS: ceFAZolin 1 GM ADVAN 1 GM in NS 0.9% 50 ML 50 ML IVPB SCH ×2 (14:52→23:35)
[2022-12-20] MEDS: Mometasone/Formoter 200/5 MDI INH SCH (19:55)
[2022-12-20] MEDS: Magnesium Hydroxide LIQ 30 ML UDC PO SCH (22:33)
[2022-12-21] MEDS: Lactated Ringers 1000 ml BAG 1,000 ML IV SCH (02:31)
[2022-12-21 06:44] LABS: Hematocrit 40.1 % (38-53); Hemoglobin 13.7 g/dL (13.2-16.3); Mean Platelet Volume 8.6 fL (7.5-11.2); Platelet Count 208 10^3/uL (150-450)
[2022-12-21 07:04] LABS: Calcium 8.4 mg/dL (8.6-10.3); Creatinine, Serum 0.78 mg/dL (0.67-1.17); Potassium 4.3 mmol/L (3.5-5.0); eGFR CKD-EPI 97.1 (>60)
[2022-12-21] MEDS: ceFAZolin 1 GM ADVAN 1 GM in NS 0.9% 50 ML 50 ML IVPB SCH (07:39)
[2022-12-21] MEDS: Magnesium Hydroxide LIQ 30 ML UDC PO SCH (07:44)
[2022-12-21] MEDS: Mometasone/Formoter 200/5 MDI INH SCH (07:50)
[2022-12-21] MEDS ORDERED: Vitamin THERAPEUTIC TAB PO SCH (09:00)
[2022-12-21 10:34] VITALS: BP 108/71
== END 2022-12-21 14:42 | disposition home or self-care (01) ==
LOC: OR 05:52 → SSU 05:52
PROVIDERS: ADMIT Student in an Organized Health Care Education/Training Program; ATTEND Orthopaedic Surgery